=== PATIENT | female | born 1955 | race Caucasian/White ===

== ENCOUNTER → 2021-01-11 08:44 | Outpatient (CLI) | payer BC, SELFPAY ==
[2021-01-11 09:51] LABS: Influenza A, PCR Not Detected (NotDetected); Influenza B, PCR Not Detected (NotDetected)
[2021-01-11 10:18] LABS: Basophils # 0.1 K/mm3 (0-0.2); Basophils % 1.3 % (0.1-2.0); Eosinophils % 0.3 % (0.1-12.0); Hematocrit 48.3 % (37.0-47.0); Hemoglobin 15.4 g/dL (12.2-16.2); Lymphocytes # 1.2 K/mm3 (0.7-4.5); Lymphocytes % 17.5 % (10-50); Mean Corpuscular HGB Conc 31.9 g/dL (31.8-35.4); Mean Corpuscular Hemoglobin 28.5 pg (27.0-31.2); Mean Corpuscular Volume 89.3 fl (81-99); Mean Platelet Volume 9.1 fl (7.4-10.4); Monocytes # 0.6 K/mm3 (0.1-1.0); Monocytes % 8.5 % (1.7-9.3); Neutrophils # 5.1 K/mm3 (1.8-7.8); Neutrophils % 72.4 % (37.0-80.0); Platelet Count 239 K/mm3 (142-424); Red Cell Distribution Width 14.3 % (11.5-17.5); White Blood Count 7.1 K/mm3 (4.8-10.8)
[2021-01-11 10:21] LABS: Coronavirus 19, PCR Detected (NotDetected)
== END ==
PROVIDERS: PCP Family Medicine; Visit Provider Family Medicine
DX: Z20.822 Contact with and (suspected) exposure to COVID-19 (principal); U07.1 COVID-19
CPT/HCPCS: 36415; 85025; C9803; U0003; U0005

== ENCOUNTER 2021-01-12 09:45 | Outpatient (CLI) | payer BC, SELFPAY ==
[2021-01-12] VITALS (7 sets, daily range): BP systolic 193–222; BP diastolic 101–116; PULSE 77–93; RESP 20–22; TEMP 36.7–37; O2SAT 94–96; BMI 53.9
--- NOTE | 2021-01-12 11:27 | PC.NURSE ---
spoke with dr morocho regarding pt's blood pressure. v.o for lisinopril 10mg p.o. x 1
== END 2021-01-12 12:20 | disposition home or self-care (01) ==
PROVIDERS: PCP Family Medicine; Visit Provider Family Medicine
DX: U07.1 COVID-19 (principal); Z23 Encounter for immunization
CPT/HCPCS: 96365

== ENCOUNTER 2024-04-05 09:51 | Outpatient (CLI) | payer MEDICARE, BC, SELFPAY ==
[2024-04-05 10:51] LABS: Alanine Aminotransferase 26 U/L (12-78); Albumin/Globulin Ratio 1.2 (1.1-1.8); Alkaline Phosphatase 198 U/L (38-126); Anion Gap 23.1 mEq/L (5-15); Aspartate Amino Transferase 38 U/L (14-36); Basophils # 0.3 K/mm3 (0-0.2); Basophils % 0.4 % (0.1-2.0); Bilirubin,Total 0.6 mg/dl (0.2-1.3); Blood Urea Nitrogen 32 mg/dl (7-17); Carbon Dioxide 14 mmol/L (22.0-30.0); Chloride 102 mmol/L (98-107); Estimated Glomerular Filt Rate 13 ml/min (>60); GFR (African American) 16 ML/MIN (>60); Globulin 2.6 g/dL (1.3-3.2); Glucose 129 mg/dl (74-100); Lymphocytes # 0.4 K/mm3 (0.7-4.5); Lymphocytes % 0.6 % (10-50); Mean Corpuscular HGB Conc 29.1 g/dL (31.8-35.4); Mean Corpuscular Hemoglobin 24.7 pg (27.0-31.2); Mean Corpuscular Volume 85.1 fl (81-99); Mean Platelet Volume 10.5 fl (7.4-10.4); Monocytes # 1.2 K/mm3 (0.1-1.0); Monocytes % 1.9 % (1.7-9.3); Neutrophils # 60.6 K/mm3 (1.8-7.8); Neutrophils % 93.6 % (37.0-80.0); Platelet Count 378 K/mm3 (142-424); Potassium 5.1 mmoL/L (3.5-5.1); Red Blood Count 3.88 M/mm3 (4.20-5.40); Red Cell Distribution Width 19.2 % (11.5-17.5); Sodium 134 mmol/L (136-145); Total Protein,Serum 5.6 g/dl (6.3-8.2)
[2024-04-05 11:13] LABS: White Blood Count 64.8 K/mm3 (4.8-10.8)
[2024-04-05 11:14] LABS: MANUAL DIFFERENTIAL MANUAL DIFFERENTIAL (MANUAL DIFF)
[2024-04-05 11:31] LABS: Lymphocytes % 2 % (10-50); Monocytes % 1 % (2-9); Neutrophils % 93 % (42-76); Platelet Estimate Normal; RBC Morphology Normal; Total Cells Counted 100
[2024-04-05 15:34] LABS: Erythrocyte Sedimentation Rate 25 mm/hr (0-30)
[2024-04-07 05:21] LABS: Hemoglobin 9.6 g/dL (12.2-16.2)
[2024-04-07 09:57] LABS: Peripheral Smear Review Scanned Result
== END 2024-04-05 23:59 | disposition home or self-care (01) ==
PROVIDERS: PCP Family Medicine; Visit Provider Family Medicine
DX: R09.02 Hypoxemia (principal); R07.9 Chest pain, unspecified; D64.9 Anemia, unspecified; D72.829 Elevated white blood cell count, unspecified
CPT/HCPCS: 36415; 80053; 84443; 85007; 85025; 85027; 85044; 85651

== ENCOUNTER 2024-04-05 11:08 | Inpatient (IN) | payer MEDICARE, BC, SELFPAY ==
[2024-04-05] VITALS (16 sets, daily range): BP systolic 97–151; BP diastolic 40–78; PULSE 75–92; RESP 13–21; TEMP 36.4–36.9; O2SAT 94–99; BMI 52.1; BMI 50.8
--- NOTE | 2024-04-05 11:17 | ECG_ITS ---
APPROVED REPORT Exam: Resting ECG HR:87 bpm ECG Measurements Heart Rate 87 AXES KS 162 P 76 QRSd 109 QRS 1 QT 365 T 72 QTc 410 Conclusion SINUS RHYTHM LOW QRS VOLTAGE IN EXTREMITY LEADS [QRS DEFLECTION < 0.5 mV IN LIMB LEADS] ANTEROSEPTAL MYOCARDIAL INFARCTION , OF INDETERMINATE AGE [40+ ms Q WAVE IN V1-V4] ABNORMAL ECG UNCONFIRMED REPORT Electronically signed by : EZRA WINTERS, 04/08/2024 06:59:44
--- NOTE | 2024-04-05 11:26 | XR_ITS ---
FINAL REPORT CLINICAL HISTORY: SHORTNESS OF BREATH FINDINGS: SINGLE VIEW CHEST The heart is normal in size. The mediastinum is unremarkable. There are multiple bilateral pulmonary nodules, right greater than left. Largest nodule measures 8.5 cm in greatest dimension. There is no pneumothorax. IMPRESSION: Multiple bilateral pulmonary nodules. Please see report of chest CT. Reviewed, Interpreted and Dictated by Iván Johnson MD Transcribed by Arely Chang Authenticated and [facility]
[2024-04-05 11:36] LABS: VBG Base Excess -10.7 mmol/L (-2.4-2.3); VBG HCO3 15.8 mmol/L (23-30); VBG Oxygen Saturation 74.2 % (50-70); VBG PCO2 33.3 mmol/L (35-51); VBG PO2 45.9 mmol/L (28-40); VBG Total CO2 16.9 mmol/L (23-27)
[2024-04-05 11:37] LABS: Lactate Venous 4.5 mmol/L (0.4-2.0)
[2024-04-05 11:45] LABS: Albumin Level 3.3 g/dl (3.5-5.0); Chloride 101 mmol/L (98-107); Potassium 5.2 mmoL/L (3.5-5.1); Sodium 133 mmol/L (136-145)
[2024-04-05 11:47] LABS: Basophils # 0.3 K/mm3 (0-0.2); Basophils % 0.4 % (0.1-2.0); Hematocrit 32.3 % (37.0-47.0); Hemoglobin 9.7 g/dL (12.2-16.2); Lymphocytes # 0.5 K/mm3 (0.7-4.5); Lymphocytes % 0.8 % (10-50); Mean Corpuscular Hemoglobin 25.1 pg (27.0-31.2); Mean Corpuscular Volume 83.5 fl (81-99); Mean Platelet Volume 10.3 fl (7.4-10.4); Monocytes # 1.6 K/mm3 (0.1-1.0); Monocytes % 2.2 % (1.7-9.3); Neutrophils # 64.7 K/mm3 (1.8-7.8); Neutrophils % 92.6 % (37.0-80.0); Platelet Count 383 K/mm3 (142-424); Red Blood Count 3.87 M/mm3 (4.20-5.40)
[2024-04-05 11:48] LABS: Alanine Aminotransferase 26 U/L (12-78); Albumin/Globulin Ratio 1.1 (1.1-1.8); Alkaline Phosphatase 201 U/L (38-126); Anion Gap 19.2 mEq/L (5-15); Aspartate Amino Transferase 39 U/L (14-36); Bilirubin,Total 0.6 mg/dl (0.2-1.3); Blood Urea Nitrogen 33 mg/dl (7-17); Carbon Dioxide 18 mmol/L (22.0-30.0); Creatinine Clearance Estimated 12 mL/min (50-200); Estimated Glomerular Filt Rate 13 ml/min (>60); GFR (African American) 15 ML/MIN (>60); Globulin 3.1 g/dL (1.3-3.2); Total Protein,Serum 6.4 g/dl (6.3-8.2)
[2024-04-05 11:49] LABS: Calcium 8.9 mg/dl (8.4-10.2); Glucose 133 mg/dl (74-100)
[2024-04-05 11:52] LABS: White Blood Count 69.9 K/mm3 (4.8-10.8)
--- NOTE | 2024-04-05 11:53 | PC.NURSE ---
CRITICAL WBC 69.9, PT NAME AND R/V. DR OTT NOTIFIED
--- NOTE | 2024-04-05 11:56 | PC.NURSE ---
Portable radiology at
--- NOTE | 2024-04-05 11:59 | CT_ITS ---
FINAL REPORT TECHNIQUE: Axial images were obtained through the chest without contrast. Sagittal and coronal reconstructions were obtained. This study was performed with techniques to keep radiation doses as low as reasonably achievable (ALARA). Individualized dose reduction techniques using automated exposure control or adjustment of mA and/or kV according to the patient's size were employed. CLINICAL HISTORY: hyperleukocytosis, lethargy, pain COMPARISON: None FINDINGS: CT CHEST WITHOUT CONTRAST: Multiple pulmonary masses are present. There is a 5.2 cm lesion in the right upper lobe. There is also a right posterior middle lobe mass measuring 5.8 x 5.6 cm in size. Multiple other masses are present, all of which are noncalcified. There are a few smaller masses present in the left upper lung field. The heart size is normal. There is no pericardial or pleural effusion. IMPRESSION: Multiple noncalcified pulmonary masses are present. The largest is in the right posterior middle lobe measuring 5.8 x 5.6 cm in size. These may represent metastatic disease, although infectious or inflammatory etiologies cannot be excluded. Tissue sampling is suggested for further evaluation. Reviewed, Interpreted and Dictated by Iván Johnson MD Transcribed by Jayde Quijano Authenticated and [facility]
--- NOTE | 2024-04-05 11:59 | CT_ITS ---
FINAL REPORT TECHNIQUE: multiple axial CT images were performed from the foramen magnum to the vertex without enhancement. This study was performed with techniques to keep radiation doses as low as reasonably achievable (ALARA). Individualized dose reduction techniques using automated exposure control or adjustment of mA and/or kV according to the patient's size were employed. CLINICAL HISTORY: hyperleukocytosis, lethargy, pain COMPARISON: None FINDINGS: CT HEAD WITHOUT CONTRAST: The ventricles are moderately enlarged. There is moderate diffuse atrophy. There is periventricular white matter change likely related to small vessel disease. Physiologic calcification is present in the basal ganglia. There is no evidence of hemorrhage. No masses are identified. No extra-axial fluid is seen. There is lobular soft tissue thickening present in the left maxillary sinus without air-fluid levels. IMPRESSION: Moderate atrophy and chronic changes without acute process. Reviewed, Interpreted and Dictated by Iván Johnson MD Transcribed by Jayde Quijano Authenticated and [facility]
--- NOTE | 2024-04-05 11:59 | CT_ITS ---
FINAL REPORT TECHNIQUE: Axial images through the abdomen and pelvis were performed without contrast. This study was performed with techniques to keep radiation doses as low as reasonably achievable, (ALARA). Individualized dose reduction techniques using automated exposure control or adjustment of mA and/or kV according to the patient's size were employed. CLINICAL HISTORY: hyperleukocytosis, lethargy, pain COMPARISON: None FINDINGS: CT ABDOMEN AND PELVIS WITHOUT CONTRAST: Abdomen: Fatty infiltration of the liver is present. The gallbladder is present. The spleen, pancreas, and adrenals are unremarkable. Moderate right hydronephrosis is present. There is a mass contiguous with the anterior abdominal aorta measuring 4.4 x 4.2 cm in size, that is likely responsible for the right ureteral obstruction. There are multiple nonobstructing stones present in the left kidney. Pelvis: The urinary bladder is unremarkable. The appendix is not visualized. There is a mass arising from the fundus of the uterus, which measures 5.8 cm in diameter. Postinfusion CT would be helpful for further evaluation. There is a large umbilical hernia present, that contains soft tissue nodules. IMPRESSION: Moderate right hydronephrosis, as well as a mass contiguous with the anterior abdominal aorta, paracentral into the right, measuring 4.4 x 4.2 cm in size. Without contrast enhancement of the origin of the mass is difficult to evaluate. There is a mass arising from the fundus of the uterus, which measures 5.8 cm in diameter. Once again postinfusion CT would be helpful for further evaluation. There is also a large umbilical hernia present that contains soft tissue nodules, which may represent peritoneal seeding from tumor, infection, or inflammation. Reviewed, Interpreted and Dictated by Iván Johnson MD Transcribed by Jadye Quijano Authenticated and [facility]
[2024-04-05 12:00] LABS: Troponin I 0.09 ng/ml (0.00-0.034)
[2024-04-05] MEDS: LACTATED RINGERS 1000ML 1,000 ML 999 ML IV (12:02)
--- NOTE | 2024-04-05 12:03 | PC.NURSE ---
DR OTT SPEAKING WITH DR PEOPLES
--- NOTE | 2024-04-05 12:09 | PC.NURSE ---
pt is more alert @ this time but still feels tired and weak. currently with radiology
--- NOTE | 2024-04-05 12:18 | ED_ITS ---
Discharge Plan Disposition Patient Disposition: Admitted Clinical Impressions Clinical Impression: SARMAD (acute kidney injury), Anemia, Lethargy, Lung mass, Pelvic mass, Leukocytosis, Obstructive uropathy Discharge ED Provider: Noreen Malik General Adult HPI <Flavio Barry MD - Last Filed: 04/05/24 14:27> General Chief complaint: Weakness Stated complaint: low kidney function, weak Time Seen by Provider: 04/05/24 11:42 Mode of Arrival: Wheelchair Source of Information: Patient and Spouse Limitations: Altered Mental Status Description of Symptoms (Recalled from ER Triage Doc. by RN): pt is lethargic,sent over from work. poor historian. feels short of breath,weak History of Present Illness HPI narrative: Patient is a 68-year-old female sent from her doctor's office for significant leukocytosis. She states that she has been fatigued and lethargic since . She was diagnosed with COVID around that time. However symptoms continue to worsen and she had blood work done by her primary care doctor who also works with her in his office and she was found to have a white blood cell count near 70 as well as acute kidney injury with a creatinine near 4 with a baseline creatinine that is normal. She was sent to the emergency department for further evaluation and management. Patient denies any other infectious symptoms such as fevers cough urinary symptoms rash etc. She also states that she has not been having any weight loss but she is aware of or other B- type symptoms such as night sweats. Related Data Home Medications ?Medication ?Instructions ?Recorded ?Confirmed losartan 100 1 tab PO DAILY 04/05/24 04/05/24 mg-hydrochlorothiazide 25 mg tablet Allergies Allergy/AdvReac Type Severity Reaction Status Date / Time No Known Allergies Allergy Verified 01/12/21 10:38 PFSH <Flavio Barry MD - Last Filed: 04/05/24 14:27> [facility] Disclaimer: The information contained in this section may have been updated after the patient was seen, as this information can be updated by other users. Medical History Hypertension Surgical History History of Family History Other Cancer Coronary artery disease Heart attack Hyperlipidemia Hypertension Social History (Updated 04/05/24 @ 17:35 by Marleni Friend, RN) Smoking Status: Former smoker alcohol intake: never current occupational status: other Travel in the last 8 weeks: None Have you lived/traveled outside [place] in past 30 days?: No Contact w/someone who lives/traveled outside US past 30 days?: No Exposure to someone with infectious disease in past 14 days?: No Do you have a fever (greater than 100.4 F or 38 C)?: No Have you tested positive for COVID-19: No Exposed to someone with COVID-19 in past 14 days?: No Do you have a sore throat?: No Do you have a cough?: No Do you have any weakness?: Yes Are you experiencing any nausea/vomitting?: No Do you have any diarrhea?: No Are you experiencing any unusual bleeding?: No Do you have any muscle aches/pain?: No Do you have any abdominal pain?: No Are you experiencing loss of taste or smell?: No <Flavio Barry MD - Last Filed: 04/05/24 14:27> ROS Obtained: Yes All systems reviewed & no additional complaints except as documented Physical Exam <Flavio Barry MD - Last Filed: 04/05/24 14:27> General General appearance: lethargic Neck Neck exam: Absent lymphadenopathy Respiratory Respiratory exam: Present normal lung sounds bilaterally; Absent respiratory distress Cardiovascular Cardiovascular exam: Present regular rate; Absent normal rhythm Abdominal Exam Abdominal exam: Present soft; Absent distention or tenderness Neurological Exam Neurological exam: Present alert and oriented X3 Medical Decision Making <Flavio Barry MD - Last Filed: 04/05/24 14:27> Medical Records Screening: Per USPSTF and CDC recommendations, given the prevalence of disease in our region, it is our hospital?s policy to screen for HIV and viral Hepatitis for all patients aged 18 and over and those with ongoing risk factors. Reji Inquiry Pt receiving controlled substance: No Vital Signs: 04/05/24 11:10 04/05/24 11:31 04/05/24 12:00 Temperature 97.6 F Temperature Source Oral Pulse Rate 80 Pulse Rate [Right] 76 Respiratory Rate 20 21 Blood Pressure 127/45 L 151/63 H Blood Pressure [Right Arm] 97/45 L Blood Pressure Mean 82 Blood Pressure Mean [Right Arm] 62 02 Sat by Pulse Oximetry 99 97 96 Oxygen Delivery Method Room Air Room Air Room Air 04/05/24 12:30 04/05/24 12:38 04/05/24 13:00 Temperature Temperature Source Pulse Rate 81 92 H 89 Pulse Rate [Right] Respiratory Rate 19 20 16 Blood Pressure 107/48 L 121/51 L 131/60 Blood Pressure [Right Arm] Blood Pressure Mean Blood Pressure Mean [Right Arm] 02 Sat by Pulse Oximetry 97 95 96 Oxygen Delivery Method Room Air Room Air Room Air 04/05/24 13:30 04/05/24 14:00 04/05/24 14:30 Temperature Temperature Source Pulse Rate 79 78 90 Pulse Rate [Right] Respiratory Rate 13 16 19 Blood Pressure 127/65 138/58 L 132/61 Blood Pressure [Right Arm] Blood Pressure Mean Blood Pressure Mean [Right Arm] 02 Sat by Pulse Oximetry 97 95 94 L Oxygen Delivery Method Room Air Room Air Room Air 04/05/24 15:00 04/05/24 15:30 04/05/24 16:00 Temperature Temperature Source Pulse Rate 82 87 78 Pulse Rate [Right] Respiratory Rate 17 18 19 Blood Pressure 140/78 126/40 L 129/56 L Blood Pressure [Right Arm] Blood Pressure Mean Blood Pressure Mean [Right Arm] 02 Sat by Pulse Oximetry 96 96 94 L Oxygen Delivery Method Room Air Room Air Room Air 04/05/24 16:30 04/05/24 16:41 Temperature 98.5 F Temperature Source Pulse Rate 88 90 Pulse Rate [Right] Respiratory Rate 21 20 Blood Pressure 128/61 128/61 Blood Pressure [Right Arm] Blood Pressure Mean Blood Pressure Mean [Right Arm] 02 Sat by Pulse Oximetry 94 L Oxygen Delivery Method Room Air Room Air Lab Data Lab results reviewed: Yes I reviewed the patient's lab results. Lab Results 04/05/24 11:20: WBC 69.9 H*, RBC 3.87 L, Hgb 9.7 L, Hct 32.3 L, MCV 83.5, MCH 25.1 L, MCHC 30.0 L, RDW 19.0 H, Plt Count 383, MPV 10.3, Neut % (Auto) 92.6 H, Lymph % (Auto) 0.8 L, Iron % (Auto) 2.2, Eos % (Auto) 0.0 L, Baso % (Auto) 0.4, Neut # (Auto) 64.7 H, Lymph # (Auto) 0.5 L, Iron # (Auto) 1.6 H, Eos # (Auto) 0.0, Baso # (Auto) 0.3 H, Sodium 133 L, Potassium 5.2 H, Chloride 101, Carbon Dioxide 18 L, Anion Gap 19.2 H, BUN 33 H, Creatinine 3.60 H, Estimated Creat Clear 12, Estimated GFR 13 L*, Est GFR ( Amer) 15 L*, Glucose 133 H, Uric Acid 12.6 H, Calcium 8.9, Total Bilirubin 0.6, AST 39 H, ALT 26, Alkaline Phosphatase 201 H, Lactate Dehydrogenase 516, Troponin I 0.09 H, Total Protein 6.4, Albumin 3.3 L, Globulin 3.1, Albumin/Globulin Ratio 1.1, HCV Ab OLEG w/Rflx PCR Qn Negative, HIV Ag/Ab Combo Qual Negative 04/05/24 11:26: VBG pH 7.30 L, VBG pCO2 33.3 L, VBG pO2 45.9 H, VBG HCO3 15.8 L, VBG Total CO2 16.9 L, VBG O2 Saturation 74.2 H, VBG Base Excess -10.7 L, VBG Lactic Acid 4.5 H 04/05/24 15:26: Troponin I 0.07 H 04/05/24 15:44: Lactate 1.6 04/05/24 11:20 04/05/24 11:20 Orders (Tests/Meds): ED MEDICATIONS Generic Name Dose Route Start Last Admin Trade Name Freq PRN Reason Stop Dose Admin Acetaminophen 650 mg 04/05/24 17:15 Acetaminophen 325mg Tab PO 05/05/24 17:14 Q4HP PRN Fever or Mild Pain (1-3) Enoxaparin Sodium 40 mg 04/05/24 17:30 04/05/24 17:44 Enoxaparin 40mg/0.4ml Syringe SUBCUT 05/05/24 17:29 40 mg DAILY NELSY Administration Lactated Ringer's 1,000 mls @ 75 mls/hr 04/05/24 17:15 04/05/24 17:40 Lactated Ringer's 1000 Ml Bag IV 05/05/24 17:14 75 mls/hr .[id number] NELSY Administration Ondansetron HCl 4 mg 04/05/24 17:15 Ondansetron 4mg/2ml Vial IV 05/05/24 17:14 Q8HP PRN Nausea Pantoprazole Sodium 40 mg 04/05/24 21:00 Pantoprazole 40mg Tablet PO 05/05/24 20:59 HS NELSY Sodium Chloride 10 ml 04/05/24 11:28 Sodium Chloride 0.9% 10ml Flush Syringe IV 05/05/24 11:27 NEEDED PRN Maintain IV Site Sodium Chloride 10 ml 04/05/24 17:15 Sodium Chloride 0.9% 10ml Flush Syringe IV 05/05/24 17:14 NEEDED PRN Maintain IV Site Discontinued Medications Generic Name Dose Route Start Last Admin Trade Name Freq PRN Reason Stop Dose Admin Lactated Ringer's 1,000 mls @ 999 mls/hr 04/05/24 12:00 04/05/24 12:02 Lactated Ringer's 1000 Ml Bag IV 04/05/24 13:00 999 mls/hr .[id number] NELSY Administration ORDERS Category Date Time Status CT abdomen pelvis wo con Stat Cat Scan 04/05/24 11:[address] chest wo con Stat Cat Scan 04/05/24 11:[address] head/brain wo con Stat Cat Scan 04/05/24 11:59 Completed XR chest portable Stat Exams 04/05/24 11:26 Completed CBC [Complete Blood Count Auto Diff] Stat Lab 04/05/24 11:20 Completed Comprehensive Metabolic Panel Stat Lab 04/05/24 11:20 Completed HIV Combo Stat Lab 04/05/24 11:20 Completed Hepatitis C Ab Qual. W/ RFX Stat Lab 04/05/24 11:20 Completed LDH [Lactate Dehydrogenase] Stat Lab 04/05/24 11:20 Completed Lactic Acid Follow Up (RFLX 1) Stat Lab 04/05/24 15:44 Completed Rapid PCR Covid and Flu A/B Stat Lab 04/05/24 Completed Troponin I Q3H Lab 04/05/24 15:26 Completed Troponin I Q3H Lab 04/05/24 17:26 Received Troponin I Stat Lab 04/05/24 11:20 Completed UA [Urinalysis and Microscopic] Stat Lab 04/05/24 11:59 Ordered Uric Acid Stat Lab 04/05/24 11:20 Completed Blood Culture Stat Micro 04/05/24 11:37 Received VBG [Venous Blood Gas] Stat RT 04/05/24 11:26 Completed Medical Decision Narrative: 68-year-old ill-appearing lethargic patient presents today with significant leukocytosis and acute kidney injury. Differential was done including a manual differential which does not demonstrate any blasts. 93% neutrophils and 4 bands. She has no signs or symptoms of sepsis. This is most likely consistent with an acute hematologic malignancy. She had no lymphadenopathy on my exam however chest x-ray was performed I personally interpreted this which shows 2 large masses in the periphery of the upper and lower aspect of the lung. Therefore this is most likely a rapidly expanding tumor possibly tumor lysis syndrome and/or lymphoma. Uric acid LDH have been added. IV fluids have been initiated. Patient likely needs to be evaluated tertiary care referral center for the possibility of induction chemotherapy. She is lethargic but nonfocal from a neurologic standpoint but does have renal insufficiency which could be also secondary to symptomatic leukostasis. Noncontrasted CT scans are being performed at the moment as the patient currently is reluctant to be transferred but we do not have nephrology coverage here nor inpatient heme-onc and is almost certainly needs to be a tertiary care referral center but will reassess after this imaging is complete CT scans performed which I personally interpreted which shows numerous nodules and lung masses as well as a pelvic mass. This is almost certainly metastatic cancer. I favor lymphoma at the moment given the presentation with a significant cytosis. However bladder/ malignancy remains in the differential. Additionally this pelvic mass is causing obstruction and right-sided hydronephrosis which is likely the cause of the patient's acute kidney injury. Dr. Benjamin her primary care doctor was actually in house and we came and had an extensive discussion with the patient and the patient at the moment wants to be aggressive diagnosing and managing this. Therefore given the fact that she has multiple issues going on including renal insufficiency possible hematologic emergency and urologic emergency patient will need to be sent to a tertiary care referral center. She has no signs or symptoms of sepsis at the moment. Holding off on any antibiotic administration. She remains hemodynamically stable. Reassessment 2:25 PM I have discussed the case with [facility], Dr. Cruz who is the transfer center physician we also spoke with their heme-onc physician and they are attempting to create a bed for this patient to be followed by heme-onc primarily. They state it may be later this afternoon but they are not for sure and patient was listed. Dr. Muniz will be the accepting physician. However given the fact that there is no definitive location at the moment we contacted [facility] who are also on divert. I subsequently spoke with Dr. Benjamin and we will wait another hour and a half and reassess at 4 PM of the patient still does not have a bed available at we will call Dr. Benjamin back and he will be willing to accept the patient until a bed becomes available at . Care transition to Dr. Malik at 3 PM. <Noreen N King, DO - Last Filed: 04/05/24 17:47> Vital Signs: 04/05/24 11:10 04/05/24 11:31 04/05/24 12:00 Temperature 97.6 F Temperature Source Oral Pulse Rate 80 Pulse Rate [Right] 76 Respiratory Rate 20 21 Blood Pressure 127/45 L 151/63 H Blood Pressure [Right Arm] 97/45 L Blood Pressure Mean 82 Blood Pressure Mean [Right Arm] 62 02 Sat by Pulse Oximetry 99 97 96 Oxygen Delivery Method Room Air Room Air Room Air 04/05/24 12:30 04/05/24 12:38 04/05/24 13:00 Temperature Temperature Source Pulse Rate 81 92 H 89 Pulse Rate [Right] Respiratory Rate 19 20 16 Blood Pressure 107/48 L 121/51 L 131/60 Blood Pressure [Right Arm] Blood Pressure Mean Blood Pressure Mean [Right Arm] 02 Sat by Pulse Oximetry 97 95 96 Oxygen Delivery Method Room Air Room Air Room Air 04/05/24 13:30 04/05/24 14:00 04/05/24 14:30 Temperature Temperature Source Pulse Rate 79 78 90 Pulse Rate [Right] Respiratory Rate 13 16 19 Blood Pressure 127/65 138/58 L 132/61 Blood Pressure [Right Arm] Blood Pressure Mean Blood Pressure Mean [Right Arm] 02 Sat by Pulse Oximetry 97 95 94 L Oxygen Delivery Method Room Air Room Air Room Air 04/05/24 15:00 04/05/24 15:30 04/05/24 16:00 Temperature Temperature Source Pulse Rate 82 87 78 Pulse Rate [Right] Respiratory Rate 17 18 19 Blood Pressure 140/78 126/40 L 129/56 L Blood Pressure [Right Arm] Blood Pressure Mean Blood Pressure Mean [Right Arm] 02 Sat by Pulse Oximetry 96 96 94 L Oxygen Delivery Method Room Air Room Air Room Air 04/05/24 16:30 04/05/24 16:41 Temperature 98.5 F Temperature Source Pulse Rate 88 90 Pulse Rate [Right] Respiratory Rate 21 20 Blood Pressure 128/61 128/61 Blood Pressure [Right Arm] Blood Pressure Mean Blood Pressure Mean [Right Arm] 02 Sat by Pulse Oximetry 94 L Oxygen Delivery Method Room Air Room Air Lab Data Lab Results 04/05/24 11:20: WBC 69.9 H*, RBC 3.87 L, Hgb 9.7 L, Hct 32.3 L, MCV 83.5, MCH 25.1 L, MCHC 30.0 L, RDW 19.0 H, Plt Count 383, MPV 10.3, Neut % (Auto) 92.6 H, Lymph % (Auto) 0.8 L, Iron % (Auto) 2.2, Eos % (Auto) 0.0 L, Baso % (Auto) 0.4, Neut # (Auto) 64.7 H, Lymph # (Auto) 0.5 L, Iron # (Auto) 1.6 H, Eos # (Auto) 0.0, Baso # (Auto) 0.3 H, Sodium 133 L, Potassium 5.2 H, Chloride 101, Carbon Dioxide 18 L, Anion Gap 19.2 H, BUN 33 H, Creatinine 3.60 H, Estimated Creat Clear 12, Estimated GFR 13 L*, Est GFR ( Amer) 15 L*, Glucose 133 H, Uric Acid 12.6 H, Calcium 8.9, Total Bilirubin 0.6, AST 39 H, ALT 26, Alkaline Phosphatase 201 H, Lactate Dehydrogenase 516, Troponin I 0.09 H, Total Protein 6.4, Albumin 3.3 L, Globulin 3.1, Albumin/Globulin Ratio 1.1, HCV Ab OLEG w/Rflx PCR Qn Negative, HIV Ag/Ab Combo Qual Negative 04/05/24 11:26: VBG pH 7.30 L, VBG pCO2 33.3 L, VBG pO2 45.9 H, VBG HCO3 15.8 L, VBG Total CO2 16.9 L, VBG O2 Saturation 74.2 H, VBG Base Excess -10.7 L, VBG Lactic Acid 4.5 H 04/05/24 15:26: Troponin I 0.07 H 04/05/24 15:44: Lactate 1.6 Orders (Tests/Meds): ED MEDICATIONS Generic Name Dose Route Start Last Admin Trade Name Fretu PRN Reason Stop Dose Admin Acetaminophen 650 mg 04/05/24 17:15 Acetaminophen 325mg Tab PO 05/05/24 17:14 Q4HP PRN Fever or Mild Pain (1-3) Enoxaparin Sodium 40 mg 04/05/24 17:30 04/05/24 17:44 Enoxaparin 40mg/0.4ml Syringe SUBCUT 05/05/24 17:29 40 mg DAILY NELSY Administration Lactated Ringer's 1,000 mls @ 75 mls/hr 04/05/24 17:15 04/05/24 17:40 Lactated Ringer's 1000 Ml Bag IV 05/05/24 17:14 75 mls/hr .[id number] NELSY Administration Ondansetron HCl 4 mg 04/05/24 17:15 Ondansetron 4mg/2ml Vial IV 05/05/24 17:14 Q8HP PRN Nausea Pantoprazole Sodium 40 mg 04/05/24 21:00 Pantoprazole 40mg Tablet PO 05/05/24 20:59 HS NELSY Sodium Chloride 10 ml 04/05/24 11:28 Sodium Chloride 0.9% 10ml Flush Syringe IV 05/05/24 11:27 NEEDED PRN Maintain IV Site Sodium Chloride 10 ml 04/05/24 17:15 Sodium Chloride 0.9% 10ml Flush Syringe IV 05/05/24 17:14 NEEDED PRN Maintain IV Site Discontinued Medications Generic Name Dose Route Start Last Admin Trade Name Miguelangel PRN Reason Stop Dose Admin Lactated Ringer's 1,000 mls @ 999 mls/hr 04/05/24 12:00 04/05/24 12:02 Lactated Ringer's 1000 Ml Bag IV 04/05/24 13:00 999 mls/hr .[id number] NELSY Administration ORDERS Category Date Time Status CT abdomen pelvis wo con Stat Cat Scan 04/05/24 11:[address] chest wo con Stat Cat Scan 04/05/24 11:[address] head/brain wo con Stat Cat Scan 04/05/24 11:59 Completed XR chest portable Stat Exams 04/05/24 11:26 Completed CBC [Complete Blood Count Auto Diff] Stat Lab 04/05/24 11:20 Completed Comprehensive Metabolic Panel Stat Lab 04/05/24 11:20 Completed HIV Combo Stat Lab 04/05/24 11:20 Completed Hepatitis C Ab Qual. W/ RFX Stat Lab 04/05/24 11:20 Completed LDH [Lactate Dehydrogenase] Stat Lab 04/05/24 11:20 Completed Lactic Acid Follow Up (RFLX 1) Stat Lab 04/05/24 15:44 Completed Rapid PCR Covid and Flu A/B Stat Lab 04/05/24 Completed Troponin I Q3H Lab 04/05/24 15:26 Completed Troponin I Q3H Lab 04/05/24 17:26 Received Troponin I Stat Lab 04/05/24 11:20 Completed UA [Urinalysis and Microscopic] Stat Lab 04/05/24 11:59 Ordered Uric Acid Stat Lab 04/05/24 11:20 Completed Blood Culture Stat Micro 04/05/24 11:37 Received VBG [Venous Blood Gas] Stat RT 04/05/24 11:26 Completed Medical Decision Narrative: 68-year-old ill-appearing lethargic patient presents today with significant leukocytosis and acute kidney injury. Differential was done including a manual differential which does not demonstrate any blasts. 93% neutrophils and 4 bands. She has no signs or symptoms of sepsis. This is most likely consistent with an acute hematologic malignancy. She had no lymphadenopathy on my exam however chest x-ray was performed I personally interpreted this which shows 2 large masses in the periphery of the upper and lower aspect of the lung. Therefore this is most likely a rapidly expanding tumor possibly tumor lysis syndrome and/or lymphoma. Uric acid LDH have been added. IV fluids have been initiated. Patient likely needs to be evaluated tertiary care referral center for the possibility of induction chemotherapy. She is lethargic but nonfocal from a neurologic standpoint but does have renal insufficiency which could be also secondary to symptomatic leukostasis. Noncontrasted CT scans are being performed at the moment as the patient currently is reluctant to be transferred but we do not have nephrology coverage here nor inpatient heme-onc and is almost certainly needs to be a tertiary care referral center but will reassess after this imaging is complete CT scans performed which I personally interpreted which shows numerous nodules and lung masses as well as a pelvic mass. This is almost certainly metastatic cancer. I favor lymphoma at the moment given the presentation with a significant cytosis. However bladder/ malignancy remains in the differential. Additionally this pelvic mass is causing obstruction and right-sided hydronephrosis which is likely the cause of the patient's acute kidney injury. Dr. Benjamin her primary care doctor was actually in house and we came and had an extensive discussion with the patient and the patient at the moment wants to be aggressive diagnosing and managing this. Therefore given the fact that she has multiple issues going on including renal insufficiency possible hematologic emergency and urologic emergency patient will need to be sent to a tertiary care referral center. She has no signs or symptoms of sepsis at the moment. Holding off on any antibiotic administration. She remains hemodynamically stable. Reassessment 2:25 PM I have discussed the case with [facility], Dr. Cruz who is the transfer center physician we also spoke with their heme-onc physician and they are attempting to create a bed for this patient to be followed by heme-onc primarily. They state it may be later this afternoon but they are not for sure and patient was listed. Dr. Muniz will be the accepting physician. However given the fact that there is no definitive location at the moment we contacted [facility] who are also on divert. I subsequently spoke with Dr. Benjamin and we will wait another hour and a half and reassess at 4 PM of the patient still does not have a bed available at we will call Dr. Benjamin back and he will be willing to accept the patient until a bed becomes available at . Care transition to Dr. Malik at 3 PM. King DO: On my assessment of the patient, she is resting comfortably in bed in no acute distress with reassuring vital signs on cardiac telemetry. She states she is feeling okay. We called [facility] at [phone] and they noted they still do not have a bed, she is still waitlisted. Given this, I had an interactive discussion with Dr. Benjamin who is admitting the patient here while waiting for bed at . Patient was admitted in stable condition. Critical Care <Flavio Barry MD - Last Filed: 04/05/24 14:27> Critical Care Time Critical Care Time: Yes Attestation: On 04/05/24, the high probability of a clinically significant, sudden or life threatening deterioration of the following system(s) required my full and direct attention, intervention and personal management. The time I documented below is in addition to time spent performing reported procedures but includes the following listed in this critical care notation. Total Time Total Critical Care Time: 65
--- NOTE | 2024-04-05 12:26 | PC.NURSE ---
Asked Christiane in Radiology to power-share all images to [facility] and prepare a disc.
--- NOTE | 2024-04-05 12:27 | PC.NURSE ---
pt back in room from ct scans
--- NOTE | 2024-04-05 12:47 | PC.NURSE ---
Dr. Benjamin & Dr. Barry at to update family on POC
--- NOTE | 2024-04-05 13:07 | PC.NURSE ---
Call out to [facility] for possible transfer.
[2024-04-05 13:10] LABS: Lactate Dehydrogenase 516 U/L (313-618); Uric Acid 12.6 mg/dl (2.5-6.2)
[2024-04-05 13:15] LABS: HIV Combo NEGATIVE (Negative)
[2024-04-05 13:23] LABS: Hepatitis C Ab Qual. W/ RFX NEGATIVE (Negative)
[2024-04-05 13:31] LABS: Coronavirus 19, PCR Not Detected (NotDetected); Influenza A, PCR Not Detected (NotDetected); Influenza B, PCR Not Detected (NotDetected)
--- NOTE | 2024-04-05 13:37 | PC.NURSE ---
DR OTT SPEAKING WITH [facility]
--- NOTE | 2024-04-05 14:17 | PC.NURSE ---
Called out to [facility], they are waitlisting patients at this time. Dr. Barry said not to put her on that list at this time. He will speak with Dr. Benjamin
--- NOTE | 2024-04-05 14:32 | PC.NURSE ---
rounded on patient and offered food and drink, pt was given ice water but denied needing or wanting anything else
--- NOTE | 2024-04-05 14:47 | PC.NURSE ---
DR OTT AT BEDSIDE TO UPDATE PT AND FAMILY
[2024-04-05 15:36] LABS: Reflex Lactic Add Lactic Reflex
[2024-04-05 15:58] LABS: Troponin I 0.07 ng/ml (0.00-0.034)
[2024-04-05 16:03] LABS: Lactic Acid Follow Up (RFLX 1) 1.6 mmol/L (0.7-2.1)
--- NOTE | 2024-04-05 16:11 | PC.NURSE ---
PT is still on waitlist with ; Dr. Benjamin has been paged for Dr. Malik
--- NOTE | 2024-04-05 16:16 | PC.NURSE ---
speaking with Dr. Benjamin
--- NOTE | 2024-04-05 16:22 | PC.NURSE ---
spoke with house regarding a bed
--- NOTE | 2024-04-05 16:56 | EXP.HP ---
History of Present Illness *Admission Date: 04/05/24 *Reason for visit:: renal failure, new malignancy, leukocytosis *History of present illness: Patient is a 68-year-old female sent from her doctor's office for significant leukocytosis. She states that she has been fatigued and lethargic since . She was diagnosed with COVID around that time. However symptoms continue to worsen and she had blood work done by her primary care doctor who also works with her in his office and she was found to have a white blood cell count near 70 as well as acute kidney injury with a creatinine near 4 with a baseline creatinine that is normal. She was sent to the emergency department for further evaluation and management. Patient denies any other infectious symptoms such as fevers cough urinary symptoms rash etc. She also states that she has not been having any weight loss but she is aware of or other B- type symptoms such as night sweats. Differential was done including a manual differential which does not demonstrate any blasts. 93% neutrophils and 4 bands. She has no signs or symptoms of sepsis. This is most likely consistent with an acute hematologic malignancy. She had no lymphadenopathy on my exam however chest x-ray was performed I personally interpreted this which shows 2 large masses in the periphery of the upper and lower aspect of the lung. Therefore this is most likely a rapidly expanding tumor possibly tumor lysis syndrome and/or lymphoma. Uric acid LDH have been added. IV fluids have been initiated. Patient likely needs to be evaluated tertiary care referral center for the possibility of induction chemotherapy. She is lethargic but nonfocal from a neurologic standpoint but does have renal insufficiency which could be also secondary to symptomatic leukostasis. Noncontrasted CT scans are being performed at the moment as the patient currently is reluctant to be transferred but we do not have nephrology coverage here nor inpatient heme-onc and is almost certainly needs to be a tertiary care referral center but will reassess after this imaging is complete CT scans performed which I personally interpreted which shows numerous nodules and lung masses as well as a pelvic mass. This is almost certainly metastatic cancer. I favor lymphoma at the moment given the presentation with a significant cytosis. However bladder/ malignancy remains in the differential. Additionally this pelvic mass is causing obstruction and right-sided hydronephrosis which is likely the cause of the patient's acute kidney injury. Dr. Benjamin her primary care doctor was actually in house and we came and had an extensive discussion with the patient and the patient at the moment wants to be aggressive diagnosing and managing this. Therefore given the fact that she has multiple issues going on including renal insufficiency possible hematologic emergency and urologic emergency patient will need to be sent to a tertiary care referral center. She has no signs or symptoms of sepsis at the moment. Holding off on any antibiotic administration. She remains hemodynamically stable. Reassessment 2:25 PM I have discussed the case with [facility], Dr. Cruz who is the transfer center physician we also spoke with their heme-onc physician and they are attempting to create a bed for this patient to be followed by heme-onc primarily. They state it may be later this afternoon but they are not for sure and patient was listed. Dr. Muniz will be the accepting physician. However given the fact that there is no definitive location at the moment we contacted [facility] who are also on divert. I subsequently spoke with Dr. Benjamin and we will wait another hour and a half and reassess at 4 PM of the patient still does not have a bed available at we will call Dr. Benjamin back and he will be willing to accept the patient until a bed becomes available at . Care transition to Dr. Malik at 3 PM. (above as per ER physician) Both and [facility] are on divert so the patient will be admitted to [facility] while awaiting a bed at a tertiary care facility. [facility] Disclaimer: The information contained in this section may have been updated after the patient was seen, as this information can be updated by other users. Medical History (Updated 04/05/24 @ 17:22 by Andreas Benjamin MD) Hypertension Surgical History (Updated 04/05/24 @ 17:01 by RAHEEL Livingston) History of Family History (Updated 04/05/24 @ 17:01 by RAHEEL Livingston) Other Cancer Coronary artery disease Heart attack Hyperlipidemia Hypertension Social History (Updated 04/05/24 @ 14:26 by Flavio Barry MD) Smoking Status: Former smoker alcohol intake: never current occupational status: other Travel in the last 8 weeks: None Have you lived/traveled outside [place] in past 30 days?: No Contact w/someone who lives/traveled outside US past 30 days?: No Exposure to someone with infectious disease in past 14 days?: No Do you have a fever (greater than 100.4 F or 38 C)?: No Have you tested positive for COVID-19: No Exposed to someone with COVID-19 in past 14 days?: No Do you have a sore throat?: No Do you have a cough?: No Do you have any weakness?: Yes Do you have any diarrhea?: No Are you experiencing any unusual bleeding?: No Do you have any muscle aches/pain?: No Do you have any abdominal pain?: No Are you experiencing loss of taste or smell?: No Review of Systems Constitutional Constitutional: Reports anorexia, Denies chills, Reports fatigue, Denies fever(s), Reports malaise, Reports weakness and Reports weight loss Eyes Eyes: Denies blurry vision and Denies diplopia ENT Ears, Nose, Mouth, and Throat: Denies nasal congestion, Denies sore throat and Denies vertigo *Cardiovascular Cardiovascular: Denies chest pain, Reports dyspnea, Reports leg edema, Reports leg ulcers and Denies syncope *Respiratory Respiratory: Reports cough and Reports dyspnea *Gastrointestinal Gastrointestinal: Denies abdominal pain, Reports nausea and Denies vomiting *Genitourinary Genitourinary: Denies difficulty voiding and Denies dysuria *Musculoskeletal Musculoskeletal: Reports arthralgias *Neurologic Neurologic: Denies syncope, Denies vertigo and Reports weakness Endocrine Endocrine: Reports fatigue Hematologic/Lymphatic Hematologic/Lymphatic: Denies lymphadenopathy Meds Home Medications and Allergies Home Medications ?Medication ?Instructions ?Recorded ?Confirmed ?Type losartan 100 1 tab PO DAILY 04/05/24 04/05/24 History mg-hydrochlorothiazide 25 mg tablet New Prescriptions to Start Prescriptions: Allergies Allergy/AdvReac Type Severity Reaction Status Date / Time No Known Allergies Allergy Verified 01/12/21 10:38 Exam Data for Last 24 hours Vital signs and Labs for Last 24 Hours: Temp Pulse Resp BP Pulse Ox O2 Del Method 98.5 F 90 20 128/61 94 L Room Air 04/05/24 16:41 04/05/24 16:41 04/05/24 16:41 04/05/24 16:41 04/05/24 16:30 04/05/24 16:41 Laboratory Results - last 24 hr 04/05/24 11:20: WBC 69.9 H*, RBC 3.87 L, Hgb 9.7 L, Hct 32.3 L, MCV 83.5, MCH 25.1 L, MCHC 30.0 L, RDW 19.0 H, Plt Count 383, MPV 10.3, Neut % (Auto) 92.6 H, Lymph % (Auto) 0.8 L, Rose[place] % (Auto) 2.2, Eos % (Auto) 0.0 L, Baso % (Auto) 0.4, Neut # (Auto) 64.7 H, Lymph # (Auto) 0.5 L, Rose[place] # (Auto) 1.6 H, Eos # (Auto) 0.0, Baso # (Auto) 0.3 H, Sodium 133 L, Potassium 5.2 H, Chloride 101, Carbon Dioxide 18 L, Anion Gap 19.2 H, BUN 33 H, Creatinine 3.60 H, Estimated Creat Clear 12, Estimated GFR 13 L*, Est GFR ( Amer) 15 L*, Glucose 133 H, Uric Acid 12.6 H, Calcium 8.9, Total Bilirubin 0.6, AST 39 H, ALT 26, Alkaline Phosphatase 201 H, Lactate Dehydrogenase 516, Troponin I 0.09 H, Total Protein 6.4, Albumin 3.3 L, Globulin 3.1, Albumin/Globulin Ratio 1.1, HCV Ab OLEG w/Rflx PCR Qn Negative, HIV Ag/Ab Combo Qual Negative 04/05/24 11:26: VBG pH 7.30 L, VBG pCO2 33.3 L, VBG pO2 45.9 H, VBG HCO3 15.8 L, VBG Total CO2 16.9 L, VBG O2 Saturation 74.2 H, VBG Base Excess -10.7 L, VBG Lactic Acid 4.5 H 04/05/24 15:26: Troponin I 0.07 H 04/05/24 15:44: Lactate 1.6 04/05/24 : SARS-CoV-2 (PCR) Not detected, Influenza A Untype (PCR) Not detected, Influenza Type B (PCR) Not detected I & O for Last 24 hours: Intake & Output 04/03/24 04/04/24 04/05/24 04/06/24 11:59 11:59 11:59 11:59 Weight 285 lb Constitutional Constitutional: moderate distress (flushed and dyspneic) *Routine HEENT Exam Head: Present normocephalic and atraumatic Eye: Present EOMI and PERRL ENT: Present mucous membranes dry *Routine Neck Exam Neck: Present supple and full ROM *Routine Respiratory Exam Respiratory: Present decreased breath sounds (in bilateral bases); Absent wheezes or crackles *Routine Cardiovascular Exam Cardiovascular: Present tachycardia (rate 125) *Routine Abdominal Exam Abdominal: Present soft and normoactive bowel sounds; Absent tenderness *Routine Rectal Exam Rectal:: deferred *Routine Genitalia Exam Genitalia:: deferred *Routine Extremities Exam Extremities: Present edema (bilateral LE's); Absent cyanosis or clubbing *Routine Skin Exam Skin: Present intact; Absent erythema *Routine Neurological Exam Neurological: Present alert and oriented X3 Comments: initally confused but once hydrated she is alert and oriented x 3 H&P: Result Impressions CXR - Multiple bilateral pulmonary nodules. Abdominal/Pelvic CT - Moderate right hydronephrosis, as well as a mass contiguous with the anterior abdominal aorta, paracentral into the right, measuring 4.4 x 4.2 cm in size. Without contrast enhancement of the origin of the mass is difficult to evaluate. There is a mass arising from the fundus of the uterus, which measures 5.8 cm in diameter. Once again postinfusion CT would be helpful for further evaluation. There is also a large umbilical hernia present that contains soft tissue nodules, which may represent peritoneal seeding from tumor, infection, or inflammation. Chest CT - Multiple noncalcified pulmonary masses are present. The largest is in the right posterior middle lobe measuring 5.8 x 5.6 cm in size. These may represent metastatic disease, although infectious or inflammatory etiologies cannot be excluded. Tissue sampling is suggested for further evaluation. Head CT - Moderate atrophy and chronic changes without acute process. Assessment and Plan *Assessment and plan (1) Obstructive uropathy: Status: Acute Category: Medical Code(s): N13.9 - Obstructive and reflux uropathy, unspecified (2) Leukocytosis: Status: Acute Category: Medical Code(s): D72.829 - Elevated white blood cell count, unspecified (3) SARMAD (acute kidney injury): Status: Acute Category: Medical Code(s): N17.9 - Acute kidney failure, unspecified (4) Pelvic mass: Status: Acute Category: Medical Code(s): R19.00 - Intra-abdominal and pelvic swelling, mass and lump, unspecified site (5) Lung mass: Status: Acute Category: Medical Code(s): R91.8 - Other nonspecific abnormal finding of lung field (6) Lethargy: Status: Acute Category: Medical Code(s): R53.83 - Other fatigue (7) Anemia: Status: Acute Category: Medical Code(s): D64.9 - Anemia, unspecified (8) Hypertension: Status: Acute Category: Medical Code(s): I10 - Essential (primary) hypertension (9) Widespread metastatic malignant neoplastic disease: Status: Acute Category: Medical Code(s): C80.0 - Disseminated malignant neoplasm, unspecified (10) Dehydration: Status: Acute Category: Medical Code(s): E86.0 - Dehydration Plan Patient will be admitted at [facility] while awaiting a bed at a tertiary facility. She has been started on IVF's and her BP and mentation have improved. Will discuss further care with Dr. Benjamin. Dr. Benjamin entry - Saw patient, agree with above note. Plan discussed with patient and her family.
[2024-04-05] MEDS: LACTATED RINGERS 1000ML 1,000 ML 75 ML IV (17:40)
[2024-04-05] MEDS: ENOXAPARIN 40MG/0.4ML SYRINGE 40 MG SUBCUT (17:44)
[2024-04-05 18:17] LABS: Troponin I 0.06 ng/ml (0.00-0.034)
[2024-04-05] MEDS: PANTOPRAZOLE 40MG TABLET 40 MG PO (21:24)
[2024-04-06 04:00] VITALS: BP 113/50; PULSE 76; RESP 16; TEMP 36.9; O2SAT 94; BMI 48.6
--- NOTE | 2024-04-06 04:13 | PC.NURSE ---
Pt is alert and oriented x4. Pt has rested well this shift, denies pain and needs, pt has urinated x3 this shift and hasn't reported any issues or changes. This nurse was unable to obtain a urine specimen due to pt BM in urine collection container. Pt urine remains a dark yellow color with normal odor. Pt is still aware of plans to transfer to as soon as there is an open bed. A Nurse from did reach out for an update approx [phone].
[2024-04-06 06:23] LABS: Basophils # 0.1 K/mm3 (0-0.2); Basophils % 0.3 % (0.1-2.0); Eosinophils # 0.1 K/mm3 (0.0-0.4); Eosinophils % 0.2 % (0.1-12.0); Hematocrit 29.9 % (37.0-47.0); Lymphocytes # 0.8 K/mm3 (0.7-4.5); Lymphocytes % 1.8 % (10-50); Mean Corpuscular HGB Conc 30.1 g/dL (31.8-35.4); Mean Corpuscular Hemoglobin 24.7 pg (27.0-31.2); Mean Corpuscular Volume 81.9 fl (81-99); Mean Platelet Volume 10.2 fl (7.4-10.4); Monocytes # 1.7 K/mm3 (0.1-1.0); Monocytes % 3.6 % (1.7-9.3); Neutrophils # 42.7 K/mm3 (1.8-7.8); Neutrophils % 91.6 % (37.0-80.0); Platelet Count 296 K/mm3 (142-424); Red Blood Count 3.65 M/mm3 (4.20-5.40)
[2024-04-06 06:45] LABS: Anion Gap 13.7 mEq/L (5-15); Blood Urea Nitrogen 45 mg/dl (7-17); Calcium 8.2 mg/dl (8.4-10.2); Carbon Dioxide 22 mmol/L (22.0-30.0); Chloride 101 mmol/L (98-107); Creatinine Clearance Estimated 13 mL/min (50-200); Estimated Glomerular Filt Rate 13 ml/min (>60); GFR (African American) 16 ML/MIN (>60); Glucose 113 mg/dl (74-100); Phosphorous 4.7 mg/dl (2.5-4.5); Potassium 4.7 mmoL/L (3.5-5.1); Sodium 132 mmol/L (136-145)
[2024-04-06 06:46] LABS: White Blood Count 46.6 K/mm3 (4.8-10.8)
[2024-04-06 06:47] LABS: MANUAL DIFFERENTIAL MANUAL DIFFERENTIAL (MANUAL DIFF)
--- NOTE | 2024-04-06 06:47 | PC.NURSE ---
Diana from lab reported WBC of 46.6, Dr. Benjamin paged at this time
[2024-04-06 08:00] VITALS: BP 107/46; PULSE 73; RESP 20; TEMP 36.9; O2SAT 93
[2024-04-06] MEDS: LACTATED RINGERS 1000ML 1,000 ML 75 ML IV (08:09)
--- NOTE | 2024-04-06 08:21 | P.PN_ITS ---
Subjective *Date: 04/06/24 *Time: 08:52 Interval history: Patient states she tried to sleep off and on throughout the night but she was nervous and scared so it was difficult to rest. She does not feel like eating. She has some pain in her lower abdomen and has started having horrible diarrhea. She has pain in her left hip and would like a heating pad. Medical Exam Vital signs and Labs for Last 24 Hours: Vital Signs Temp Pulse Pulse Resp BP BP Pulse Ox 04/06/24 06:54 04/06/24 05:00 04/06/24 04:00 98.4 F 76 16 113/50 L 94 L 04/06/24 03:00 04/06/24 01:00 04/05/24 23:36 04/05/24 21:00 04/05/24 20:00 95 04/05/24 20:00 98.3 F 75 19 105/52 L 95 04/05/24 18:30 04/05/24 17:23 97.6 F 88 19 133/61 97 04/05/24 17:00 04/05/24 16:41 98.5 F 90 20 128/61 04/05/24 16:31 04/05/24 16:30 88 21 128/61 94 L 04/05/24 16:00 78 19 129/56 L 94 L 04/05/24 15:30 87 18 126/40 L 96 04/05/24 15:00 82 17 140/78 96 04/05/24 14:30 90 19 132/61 94 L 04/05/24 14:00 78 16 138/58 L 95 04/05/24 13:30 79 13 127/65 97 04/05/24 13:00 89 16 131/60 96 04/05/24 12:38 92 H 20 121/51 L 95 04/05/24 12:30 81 19 107/48 L 97 04/05/24 12:00 21 151/63 H 96 04/05/24 11:31 80 127/45 L 97 04/05/24 11:10 97.6 F 76 20 97/45 L 99 O2 Del Method 04/06/24 06:54 Room Air 04/06/24 05:00 Room Air 04/06/24 04:00 Room Air 04/06/24 03:00 Room Air 04/06/24 01:00 Room Air 04/05/24 23:36 Room Air 04/05/24 21:00 Room Air 04/05/24 20:00 Room Air 04/05/24 20:00 Room Air 04/05/24 18:30 Room Air 04/05/24 17:23 Room Air 04/05/24 17:00 Room Air 04/05/24 16:41 Room Air 04/05/24 16:31 Room Air 04/05/24 16:30 Room Air 04/05/24 16:00 Room Air 04/05/24 15:30 Room Air 04/05/24 15:00 Room Air 04/05/24 14:30 Room Air 04/05/24 14:00 Room Air 04/05/24 13:30 Room Air 04/05/24 13:00 Room Air 04/05/24 12:38 Room Air 04/05/24 12:30 Room Air 04/05/24 12:00 Room Air 04/05/24 11:31 Room Air 04/05/24 11:10 Room Air Intake and Output 04/05/24 04/06/24 04/06/24 19:59 03:59 11:59 Intake Total 615 / 615 Output Total 300 / 300 0 / 300 Balance 315 / 315 0 / 315 Intake: Intake, Oral Amount 240 / 240 Intake, Total IV Amount 375 / 375 Lactated Ringers 1000ML 1,000 375 / 375 ml @ 75 mls/hr IV .[id number] REPLACED BY [facility] Rx#:[id number] Output: Output, Urine Amount 300 / 300 0 / 300 Other: Number of Unmeasured Voids 0 1 Number of Bowel Movements 1 1 Weight 287 lb 3 oz 274 lb 6.4 oz Patient Weight 04/06/24 11:59 Weight 274 lb 6.4 oz Laboratory Results - last 24 hr 04/05/24 11:20: WBC 69.9 H*, RBC 3.87 L, Hgb 9.7 L, Hct 32.3 L, MCV 83.5, MCH 25.1 L, MCHC 30.0 L, RDW 19.0 H, Plt Count 383, MPV 10.3, Neut % (Auto) 92.6 H, Lymph % (Auto) 0.8 L, Blount % (Auto) 2.2, Eos % (Auto) 0.0 L, Baso % (Auto) 0.4, Neut # (Auto) 64.7 H, Lymph # (Auto) 0.5 L, [place] # (Auto) 1.6 H, Eos # (Auto) 0.0, Baso # (Auto) 0.3 H, Sodium 133 L, Potassium 5.2 H, Chloride 101, Carbon Dioxide 18 L, Anion Gap 19.2 H, BUN 33 H, Creatinine 3.60 H, Estimated Creat Clear 12, Estimated GFR 13 L*, Est GFR ( Amer) 15 L*, Glucose 133 H, Uric Acid 12.6 H, Calcium 8.9, Total Bilirubin 0.6, AST 39 H, ALT 26, Alkaline Phosphatase 201 H, Lactate Dehydrogenase 516, Troponin I 0.09 H, Total Protein 6.4, Albumin 3.3 L, Globulin 3.1, Albumin/Globulin Ratio 1.1, HCV Ab OLEG w/Rflx PCR Qn Negative, HIV Ag/Ab Combo Qual Negative 04/05/24 11:26: VBG pH 7.30 L, VBG pCO2 33.3 L, VBG pO2 45.9 H, VBG HCO3 15.8 L, VBG Total CO2 16.9 L, VBG O2 Saturation 74.2 H, VBG Base Excess -10.7 L, VBG Lactic Acid 4.5 H 04/05/24 15:26: Troponin I 0.07 H 04/05/24 15:44: Lactate 1.6 04/05/24 17:26: Troponin I 0.06 H 04/05/24 : SARS-CoV-2 (PCR) Not detected, Influenza A Untype (PCR) Not detected, Influenza Type B (PCR) Not detected 04/06/24 05:58: WBC 46.6 H* D, RBC 3.65 L, Hgb 9.0 L, Hct 29.9 L, MCV 81.9, MCH 24.7 L, MCHC 30.1 L, RDW 19.0 H, Plt Count 296, MPV 10.2, Neut % (Auto) 91.6 H, Lymph % (Auto) 1.8 L, [place] % (Auto) 3.6, Eos % (Auto) 0.2, Baso % (Auto) 0.3, Neut # (Auto) 42.7 H, Lymph # (Auto) 0.8, [place] # (Auto) 1.7 H, Eos # (Auto) 0.1, Baso # (Auto) 0.1, Sodium 132 L, Potassium 4.7, Chloride 101, Carbon Dioxide 22, Anion Gap 13.7, BUN 45 H D, Creatinine 3.40 H, Estimated Creat Clear 13, Estima dani GFR 13 L*, Est GFR ( Amer) 16 L*, Glucose 113 H, Calcium 8.2 L, Phosphorus 4.7 H I & O for Labs for Last 24 Hours: Intake & Output 04/03/24 04/04/24 04/05/24 04/06/24 11:59 11:59 11:59 11:59 Intake Total 615 / 615 Output Total 300 / 300 Balance 315 / 315 Weight 285 lb 274 lb 6.4 oz Constitutional: Present no acute distress Respiratory: Present decreased breath sounds Cardiac: Present Reg Rate and Rhythm GI: Present soft and normal bowel sounds; Absent distention or tenderness Extremities: Present edema (mild bilateral LE's); Absent clubbing or cyanosis Skin: Present intact Neuro: Present alert, awake and oriented x 3 Assessment and Plan *Assessment and plan (1) Obstructive uropathy: Status: Acute Category: Medical Code(s): N13.9 - Obstructive and reflux uropathy, unspecified (2) Leukocytosis: Status: Acute Category: Medical Code(s): D72.829 - Elevated white blood cell count, unspecified (3) SARMAD (acute kidney injury): Status: Acute Category: Medical Code(s): N17.9 - Acute kidney failure, unspecified (4) Pelvic mass: Status: Acute Category: Medical Code(s): R19.00 - Intra-abdominal and pelvic swelling, mass and lump, unspecified site (5) Lung mass: Status: Acute Category: Medical Code(s): R91.8 - Other nonspecific abnormal finding of lung field (6) Lethargy: Status: Acute Category: Medical Code(s): R53.83 - Other fatigue (7) Anemia: Status: Acute Category: Medical Code(s): D64.9 - Anemia, unspecified (8) Hypertension: Status: Acute Category: Medical Code(s): I10 - Essential (primary) hypertension (9) Widespread metastatic malignant neoplastic disease: Status: Acute Category: Medical Code(s): C80.0 - Disseminated malignant neoplasm, unspecified (10) Dehydration: Status: Acute Category: Medical Code(s): E86.0 - Dehydration Plan Renal function and WBC have improved slightly. Still awaiting a bed at or [facility]. Will get a stool panel and a kpad for her left hip. Dr. Benjamin entry - Saw patient, agree with above note.
[2024-04-06 08:31] LABS: Lymphocytes % 3 % (10-50); Monocytes % 5 % (2-9); Neutrophils % 92 % (42-76); Total Cells Counted 100
[2024-04-06 08:32] LABS: Platelet Estimate Normal; RBC Morphology Normal
[2024-04-06] MEDS: ENOXAPARIN 30MG/0.3ML SYRINGE 30 MG SUBCUT (08:36)
[2024-04-06 09:44] LABS: Microscopic, Urine URINE MICROSCOPIC (MICROSCOPIC)
[2024-04-06 09:49] LABS: Appearance,Urine CLOUDY (Clear); Blood, Urine 2+ (Negative); Color,Urine YELLOW (Yellow); Glucose,Urine (UA) Negative (Negative); Ketones,Urine Negative (Negative); Leukocyte Esterase,Urine 1+ (Negative); Nitrate,Urine POSITIVE (Negative); PH,Urine 5.5 (5.0-8.5); Protein,Urine 1+ (Negative); Specific Gravity, Urine 1.025 (1.005-1.030); Urobilinogen,Urine 0.2 EU/dl (0.2)
--- NOTE | 2024-04-06 09:49 | PC.NURSE ---
[facility] called for update in pt. still no bed.
[2024-04-06 09:59] LABS: Bilirubin,Urine 1+ (Negative)
[2024-04-06 10:12] LABS: Bacteria,Urine 3+ /lpf
--- NOTE | 2024-04-06 10:17 | CARE MANAGER ---
Contacted [facility] patient access. They state they have 15 boarding in the ER and no beds for their surgical patients, but they will have the provider reach out to Dr. Benjamin so she can be added to the list. I contacted and provided them with an update this morning. They state that they have 80 boarders and her transfer won't likely happen today. I called and provided her information to [facility] in [place] and they will reach out to Dr. Benjamin as well to see if she can be transferred there.
[2024-04-06] MEDS: ERTAPENEM SODIUM 0.5 GM in 0.9 % SODIUM CHLORIDE 50 ML IV (10:56)
--- NOTE | 2024-04-06 15:00 | PC.NURSE ---
called and notified this RN that pt has a bed assignment.
[2024-04-06 15:09] VITALS: BMI 48.6
--- NOTE | 2024-04-09 23:49 | EXP.DC.SUM ---
General Admission date:: 04/05/24 Discharge date: 04/06/24 HPI HPI HPI: Patient is a 68-year-old female sent from her doctor's office for significant leukocytosis. She states that she has been fatigued and lethargic since . She was diagnosed with COVID around that time. However symptoms continue to worsen and she had blood work done by her primary care doctor who also works with her in his office and she was found to have a white blood cell count near 70 as well as acute kidney injury with a creatinine near 4 with a baseline creatinine that is normal. She was sent to the emergency department for further evaluation and management. Patient denies any other infectious symptoms such as fevers cough urinary symptoms rash etc. She also states that she has not been having any weight loss but she is aware of or other B- type symptoms such as night sweats. Differential was done including a manual differential which does not demonstrate any blasts. 93% neutrophils and 4 bands. She has no signs or symptoms of sepsis. This is most likely consistent with an acute hematologic malignancy. She had no lymphadenopathy on my exam however chest x-ray was performed I personally interpreted this which shows 2 large masses in the periphery of the upper and lower aspect of the lung. Therefore this is most likely a rapidly expanding tumor possibly tumor lysis syndrome and/or lymphoma. Uric acid LDH have been added. IV fluids have been initiated. Patient likely needs to be evaluated tertiary care referral center for the possibility of induction chemotherapy. She is lethargic but nonfocal from a neurologic standpoint but does have renal insufficiency which could be also secondary to symptomatic leukostasis. Noncontrasted CT scans are being performed at the moment as the patient currently is reluctant to be transferred but we do not have nephrology coverage here nor inpatient heme-onc and is almost certainly needs to be a tertiary care referral center but will reassess after this imaging is complete CT scans performed which I personally interpreted which shows numerous nodules and lung masses as well as a pelvic mass. This is almost certainly metastatic cancer. I favor lymphoma at the moment given the presentation with a significant cytosis. However bladder/ malignancy remains in the differential. Additionally this pelvic mass is causing obstruction and right-sided hydronephrosis which is likely the cause of the patient's acute kidney injury. Dr. Benjamin her primary care doctor was actually in house and we came and had an extensive discussion with the patient and the patient at the moment wants to be aggressive diagnosing and managing this. Therefore given the fact that she has multiple issues going on including renal insufficiency possible hematologic emergency and urologic emergency patient will need to be sent to a tertiary care referral center. She has no signs or symptoms of sepsis at the moment. Holding off on any antibiotic administration. She remains hemodynamically stable. Reassessment 2:25 PM I have discussed the case with [facility], Dr. Cruz who is the transfer center physician we also spoke with their heme-onc physician and they are attempting to create a bed for this patient to be followed by heme-onc primarily. They state it may be later this afternoon but they are not for sure and patient was listed. Dr. Muniz will be the accepting physician. However given the fact that there is no definitive location at the moment we contacted [facility] who are also on divert. I subsequently spoke with Dr. Benjamin and we will wait another hour and a half and reassess at 4 PM of the patient still does not have a bed available at we will call Dr. Benjamin back and he will be willing to accept the patient until a bed becomes available at . Care transition to Dr. Malik at 3 PM. (above as per ER physician) Both and [facility] are on divert so the patient will be admitted to [facility] while awaiting a bed at a tertiary care facility. Hospital Course Hospital Course Hospital Course: The patient was admitted at [facility] while awaiting a bed at a tertiary facility. She was started on IV fluids and her blood pressure and mentation improved. She tried to rest and did not feel like eating. She did complain of some pain in her lower abdomen and had started having diarrhea. She had some pain in her left hip and heating pad was ordered. Her renal function and white blood cell count improved only slightly. She did appear to have a UTI and was started on IV antibiotics. Her urine culture was positive for E. coli and her blood culture was positive for E. coli as well. Troponins were slightly elevated but trended downward. A bed was found for her at and she was transferred for further evaluation and management. Exam Data for Last 24 hours Vital signs and Labs for Last 24 Hours: Temp Pulse Resp BP Pulse Ox O2 Del Method 98.5 F 73 20 107/46 L 93 L Room Air 04/06/24 08:00 04/06/24 08:00 04/06/24 08:00 04/06/24 08:00 04/06/24 08:00 04/06/24 17:00 I & O for Last 24 hours: Intake & Output 04/07/24 04/08/24 04/09/24 04/10/24 11:59 11:59 11:59 11:59 Intake Total 100 / 100 Balance 100 / 100 Weight 274 lb 6.55 oz Microbiology Reports for the Last 24 Hours: Microbiology 04/05/24 11:37 Blood Blood Culture - Preliminary NO GROWTH AFTER 4 DAYS Narrative: Constitutional Constitutional: moderate distress (flushed and dyspneic) *Routine HEENT Exam Head: Present normocephalic and atraumatic Eye: Present EOMI and PERRL ENT: Present mucous membranes dry *Routine Neck Exam Neck: Present supple and full ROM *Routine Respiratory Exam Respiratory: Present decreased breath sounds (in bilateral bases); Absent wheezes or crackles *Routine Cardiovascular Exam Cardiovascular: Present tachycardia (rate 125) *Routine Abdominal Exam Abdominal: Present soft and normoactive bowel sounds; Absent tenderness *Routine Rectal Exam Rectal:: deferred *Routine Genitalia Exam Genitalia:: deferred *Routine Extremities Exam Extremities: Present edema (bilateral LE's); Absent cyanosis or clubbing *Routine Skin Exam Skin: Present intact; Absent erythema *Routine Neurological Exam Neurological: Present alert and oriented X3 Comments: initally confused but once hydrated she is alert and oriented x 3 Results Data Completed and Pending Labs on day of discharge: Preliminary micro results at discharge 04/05/24 11:37 Blood Culture - Preliminary Blood NO GROWTH AFTER 4 DAYS DS: Diagnosis Discharge Diagnosis (1) Obstructive uropathy: Status: Acute Code(s): N13.9 - Obstructive and reflux uropathy, unspecified (2) Leukocytosis: Status: Acute Code(s): D72.829 - Elevated white blood cell count, unspecified (3) SARMAD (acute kidney injury): Status: Acute Code(s): N17.9 - Acute kidney failure, unspecified (4) Pelvic mass: Status: Acute Code(s): R19.00 - Intra-abdominal and pelvic swelling, mass and lump, unspecified site (5) Lung mass: Status: Acute Code(s): R91.8 - Other nonspecific abnormal finding of lung field (6) Lethargy: Status: Acute Code(s): R53.83 - Other fatigue (7) Anemia: Status: Acute Code(s): D64.9 - Anemia, unspecified (8) Hypertension: Status: Acute Code(s): I10 - Essential (primary) hypertension (9) Widespread metastatic malignant neoplastic disease: Status: Acute Code(s): C80.0 - Disseminated malignant neoplasm, unspecified (10) Dehydration: Status: Acute Code(s): E86.0 - Dehydration (11) E. coli UTI: Status: Acute Code(s): N39.0 - Urinary tract infection, site not specified; B96.20 - Unspecified Escherichia coli [E. coli] as the cause of diseases classified elsewhere (12) E. coli bacteremia: Status: Acute Code(s): R78.81 - Bacteremia; B96.20 - Unspecified Escherichia coli [E. coli] as the cause of diseases classified elsewhere Meds Home Medications and Allergies Home Medications ?Medication ?Instructions ?Recorded ?Confirmed ?Type losartan 100 1 tab PO DAILY 100/25MG 04/05/24 04/05/24 History mg-hydrochlorothiazide 25 mg tablet New Prescriptions to Start Prescriptions: Allergies Allergy/AdvReac Type Severity Reaction Status Date / Time No Known Allergies Allergy Verified 01/12/21 10:38 Discharge Plan Disposition Patient Disposition: Xfer Short-Term Hosp Condition: Serious Discharge Order Discharge Orders: Discharge Order (Routine); Ordered 04/06/24 Ordered By: Andreas Benjamin Follow up Plan Follow up with: Andreas Benjamin MD [Primary Care Provider] - Enter time for follow up Prescriptions/Medication Reconciliation: Continued losartan-hydrochlorothiazide 100-25 mg tablet 1 tab PO DAILY Patient Comments: TAKE ONE TABLET BY MOUTH EVERY DAY Problem Reconciliation Problems Reviewed?: Yes Patient Discharge Instructions ACTIVITY: Continue current activity DIET: continue same diet Stand Alone Forms: Transfer Record Patient Instructions: DI for Leukocytosis, DI for Acute Kidney Injury Print Language: Albanian Providers Primary Care Provider: Andreas Benjamin Admit Provider: Andreas Benjamin Attending Provider: Andreas Benjamin
== END 2024-04-06 17:26 | disposition short-term general hospital (02) | DRG 699 ==
LOC: ER 16:09 → 2ND 16:35
PROVIDERS: Student in an Organized Health Care Education/Training Program; Admitting Provider Family Medicine; Emergency Provider Emergency Medicine; PCP Family Medicine; Visit Provider Family Medicine
DX: N13.9 Obstructive and reflux uropathy, unspecified (principal); C80.0 Disseminated malignant neoplasm, unspecified; N17.9 Acute kidney failure, unspecified; D72.829 Elevated white blood cell count, unspecified; R19.00 Intra-abdominal and pelvic swelling, mass and lump, unspecified site; R91.8 Other nonspecific abnormal finding of lung field; R53.83 Other fatigue; D64.9 Anemia, unspecified; I10 Essential (primary) hypertension; E86.0 Dehydration
CPT/HCPCS: 36415; 70450; 71045; 71250; 74176; 80048; 80053; 81001; 82803; 83605; 83615; 84100; 84484; 84550; 85007; 85025; 86803; 87040; 87077; 87086; 87088; 87186; 87389; 87636; 93005; 99291; J1335; J1650; J7120